=== PATIENT | male | born 1980 | race Caucasian/White ===

== ENCOUNTER 2018-01-07 21:50 | Emergency (ER) | payer MEDICAID ==
[~2018-01-07] VITALS: Ht 172.7 cm; Wt 89.8 kg
[2018-01-07 22:00] VITALS: BP 121/89
--- NOTE | 2018-01-07 22:00 | NUR ---
PT TAKEN TO BED 12
--- NOTE | 2018-01-07 22:05 | NUR ---
PATIENT IS A 37 Y/O MALE WHO PRESENTS TO THE ED C/O VOMITING. PT STATES THAT IT STARTED TODAY. PT REPORTS 8/10 ACHING LOWER ABD PAIN THAT DOES NOT RADIATE. PT DENIES CP, SOB, REPORTS NAUSEA/VOMITING DENIES DIARRHEA. PT AWAKE AND ALERT, RR EVEN/UNLABORED. PT REPOSITIONED FOR COMFORT, BED IN LOWEST POSITION. ER MD DR. GAYLE NOTIFIED. WILL CONTINUE TO MONITOR.
[2018-01-07] MEDS ORDERED: NACL 0.9% 1,000 ML IV ONE (23:12)
[2018-01-07] MEDS ORDERED: ONDANSETRON 4 MG/2 ML VIAL IVP ONE (23:15)
[2018-01-07] MEDS ORDERED: KETOROLAC 30 MG/ML VIAL IVP ONE (23:15)
[2018-01-07 23:43] LABS: BASOPHILS % (AUTO) 0.3 % (0.0-2.0); EOSINOPHILS # (AUTO) 0.3 K/uL (0-0.4); EOSINOPHILS % (AUTO) 3.1 % (0.0-4.0); HEMATOCRIT 45.7 % (36-52); HEMOGLOBIN 15.4 g/dL (12.0-18.0); LYMPHOCYTES # (AUTO) 0.8 K/uL (2.0-11.5); LYMPHOCYTES % (AUTO) 9.1 % (20.5-51.1); MEAN CORPUSCULAR HEMOGLOBIN 31 pg (27-31); MEAN CORPUSCULAR HGB CONC 34 g/dL (33-37); MEAN CORPUSCULAR VOLUME 90.5 fL (80-94); MONOCYTES # (AUTO) 0.4 K/uL (0.8-1.0); NEUTROPHILS # (AUTO) 7.4 K/uL (1.8-7.7); NEUTROPHILS % (AUTO) 83.5 % (42.2-75.2); PLATELET COUNT (AUTO) 199 K/uL (140-450); RED BLOOD CELL COUNT(AUTO) 5.05 MIL/uL (4.20-6.10); RED CELL DISTRIBUTION WIDTH 13.3 % (11.6-13.7); WHITE BLOOD COUNT (AUTO) 8.9 K/uL (4.8-10.8)
--- NOTE | 2018-01-07 23:46 | NUR ---
PT TAKEN TO CT
[2018-01-07 23:57] LABS: ANION GAP 12.5 (8-16); CREATININE 0.9 mg/dL (0.7-1.3); POTASSIUM 3.5 mmol/L (3.5-5.1)
--- NOTE | 2018-01-07 23:59 | NUR ---
PT RETURN FROM CT
--- NOTE | 2018-01-08 | NUR ---
PATIENT RESTING AT THIS TIME. NO SIGNS OF DISTRESS.
[2018-01-08 00:03] LABS: ALBUMIN 4.1 g/dL (3.4-5.0); TOTAL BILIRUBIN 0.4 mg/dL (0.0-1.0)
[2018-01-08 01:00] VITALS: BP 119/72
--- NOTE | 2018-01-08 01:00 | NUR ---
Patient discharged with v/s stable. Written and verbal after care instructions given and explained. Patient alert, oriented and verbalized understanding of instructions. Ambulatory with steady gait. All questions addressed prior to discharge. ID band removed. Patient advised to follow up with PMD. Rx of ZOFRAN 4MG AND MOTRIN 800MG given. Patient educated on indication of medication including possible reaction and side effects. Opportunity to ask questions provided and answered.
== END 2018-01-08 01:00 | disposition home or self-care (01) ==
LOC: MED 21:50
DX: N23 Unspecified renal colic (principal); R63.0 Anorexia; Z88.0 Allergy status to penicillin
CPT/HCPCS: 36415; 74176; 80053; 83690; 85025; 96361; 96374; 96375; 99285; J1885; J2405; J7030

== ENCOUNTER 2018-06-06 14:27 | Emergency (ER) | payer MEDICAID ==
[~2018-06-06] VITALS: Ht 167.6 cm; Wt 93.9 kg
[2018-06-06 14:41] VITALS: BP 124/81
--- NOTE | 2018-06-06 14:47 | NUR ---
A 37 YO M BIB FAMILY W/ C/O NECK AND UPPER BACK/HEAD PAIN S/P FALL YESTERDAY FROM [facility] PER PT " ABOUT 5-6 FEET" . PT DENIES LOC. DENIESS N/V. 10/10 PAIN. AAOX4, GCS 15. CMS INTACT. PERRLA INTACT, PUPILS EQUAL 3MM. BL ARM APPOINTMENT CLERK SYMMETRICAL/STRONG. 10/10 SHARP PAIN IN NECK THAT RADIATES TO BACK. DENIES ANY DIZZYNESS. RR EVEN AND UNLABORED. ABLE TO SPEAK IN FULL AND COMPLETE SENTENCES. WILL CONTINUE TO MONITOR. SAFETY PRECAUTIONS IMPLEMETED. ER MADE AWARE.
[2018-06-06] MEDS ORDERED: IBUPROFEN 800 MG TAB PO ONE (15:55)
[2018-06-06] MEDS ORDERED: traMADol 50 MG TAB PO ONE (15:55)
--- NOTE | 2018-06-06 16:30 | NUR ---
PT. RESTING IN BED, HOB ELEVATED. RR EVEN AND UNLABORED. VSS. SAFETY PRECAUTIONS IN PLACE. WILL CONTINUE TO MONITOR.
[2018-06-06 18:07] VITALS: BP 124/82
--- NOTE | 2018-06-06 18:07 | NUR ---
Patient discharged with v/s stable. Written and verbal after care instructions given and explained. Patient alert, oriented and verbalized understanding of instructions. Ambulatory with steady gait. All questions addressed prior to discharge. ID band removed. Patient advised to follow up with PMD. Rx of IBUPROFEN 800MG. given. Patient educated on indication of medication including possible reaction and side effects. Opportunity to ask questions provided and answered.
== END 2018-06-06 18:07 | disposition home or self-care (01) ==
LOC: MED 14:27
DX: S20.20XA Contusion of thorax, unspecified, initial encounter (principal); Z88.0 Allergy status to penicillin; W17.89XA Other fall from one level to another, initial encounter; Y93.89 Activity, other specified; Y92.89 Other specified places as the place of occurrence of the external cause; Y99.8 Other external cause status
CPT/HCPCS: 71250; 72125; 99284

== ENCOUNTER 2019-06-23 22:14 | Emergency (ER) | payer MEDICAID ==
[~2019-06-23] VITALS: Ht 167.6 cm; Wt 86.2 kg
--- NOTE | 2019-06-23 22:14 | NUR ---
PT BIB [facility], PREBOOK. TAKEN TO CHAIR D
[2019-06-23 22:15] VITALS: BP 125/95
--- NOTE | 2019-06-23 22:15 | NUR ---
PT TAKEN TO CHAIR D
--- NOTE | 2019-06-23 22:18 | NUR ---
PT ASSESSMENT COMPLETE. PT SEATED UP RIGHT IN CHAIR WITH [facility]. WILL CONTINUE TO MONITOR.
[2019-06-23 22:20] VITALS: BP 125/95
--- NOTE | 2019-06-23 22:48 | NUR ---
PATIENT EXAMINED BY DR. GUADALUPE. PATIENT MEDICALLY CLEARED AND RELEASED IN CUSTODY IN STABLE CONDITION. ORIGINAL PRE-BOOK FORM GIVEN TO OFFICER YUNIOR, #[id number]
== END 2019-06-23 22:48 ==
LOC: MED 22:14
DX: Z04.1 Encounter for examination and observation following transport accident (principal); Z98.890 Other specified postprocedural states; Z88.0 Allergy status to penicillin; V89.2XXA Person injured in unspecified motor-vehicle accident, traffic, initial encounter; Y93.89 Activity, other specified; Y92.89 Other specified places as the place of occurrence of the external cause; Y99.8 Other external cause status
CPT/HCPCS: 99283

== ENCOUNTER 2022-01-23 19:54 | Emergency (ER) | payer MEDICAID ==
[~2022-01-23] VITALS: Ht 165.1 cm; Wt 105.2 kg
[2022-01-23 19:57] VITALS: BP 128/84
[2022-01-23] MEDS ORDERED: NACL 0.9% 1,000 ML IV ONE (21:35)
[2022-01-23] MEDS ORDERED: DICYCLOMINE HCL LIQUID 20 MG, ALUMINUM HYD/MAG/SIMETHICONE 30 ML, LIDOCAINE VISCOUS 2% ... PO ONE ×3 (21:35)
[2022-01-23] MEDS ORDERED: DICYCLOMINE HCL LIQUID 10 MG/5 ML UDC ONE (21:38)
[2022-01-23] MEDS ORDERED: ALUMINUM HYD/MAG/SIMETHICONE 30 ML UDC ONE (21:38)
[2022-01-23 22:05] LABS: BASOPHILS % (AUTO) 0.7 % (0.0-2.0); EOSINOPHILS # (AUTO) 0.8 K/uL (0-0.4); EOSINOPHILS % (AUTO) 10.7 % (0.0-4.0); HEMATOCRIT 46.2 % (36-52); LYMPHOCYTES # (AUTO) 1.9 K/uL (2.0-11.5); LYMPHOCYTES % (AUTO) 26.8 % (20.5-51.1); MEAN CORPUSCULAR HEMOGLOBIN 32 pg (27-31); MEAN CORPUSCULAR HGB CONC 35 g/dL (33-37); MEAN CORPUSCULAR VOLUME 92.9 fL (80-94); MONOCYTES # (AUTO) 0.6 K/uL (0.8-1.0); MONOCYTES % (AUTO) 8.1 % (1.7-9.3); NEUTROPHILS # (AUTO) 3.8 K/uL (1.8-7.7); NEUTROPHILS % (AUTO) 53.7 % (42.2-75.2); PLATELET COUNT (AUTO) 214 K/uL (140-450); RED BLOOD CELL COUNT(AUTO) 4.98 MIL/uL (4.20-6.10); RED CELL DISTRIBUTION WIDTH 12.9 % (11.6-13.7); WHITE BLOOD COUNT (AUTO) 7.1 K/uL (4.8-10.8)
[2022-01-23 22:25] LABS: ANION GAP 13.6 (8-16); CARBON DIOXIDE 27.3 mmol/L (21-32); CREATININE 1.1 mg/dL (0.6-1.3); POTASSIUM 3.9 mmol/L (3.5-5.1); TOTAL BILIRUBIN 0.7 mg/dL (0.0-1.0)
[2022-01-24] MEDS ORDERED: ACET-10509 PO (00:26)
[2022-01-24] MEDS ORDERED: ONDA-188 SL (00:26)
[2022-01-24 00:42] VITALS: BP 124/79
== END 2022-01-24 00:42 | disposition home or self-care (01) ==
LOC: MED 19:54
DX: R19.7 Diarrhea, unspecified (principal); R10.9 Unspecified abdominal pain; R11.0 Nausea; R63.0 Anorexia; Z88.0 Allergy status to penicillin; Z79.899 Other long term (current) drug therapy; Z98.890 Other specified postprocedural states
CPT/HCPCS: 36415; 80053; 81002; 83690; 85025; 96360; 99283; J7030

== ENCOUNTER 2022-07-20 18:30 | Emergency (ER) | payer MEDICAID ==
[~2022-07-20] VITALS: Ht 167.6 cm; Wt 107.0 kg
[~2022-07-20 18:30] MED LIST: ACET-10509 PO; ONDA-188 SL
[2022-07-20 18:41] VITALS: BP 138/86
--- NOTE | 2022-07-20 20:17 | NUR ---
Dr. Tierney examining patient.
[2022-07-20] MEDS ORDERED: IBUP-2213 PO (21:07)
[2022-07-20 21:14] VITALS: BP 132/86
== END 2022-07-20 21:14 | disposition home or self-care (01) ==
LOC: MED 18:30
DX: S60.221A Contusion of right hand, initial encounter (principal); Z88.0 Allergy status to penicillin; Z79.899 Other long term (current) drug therapy; W22.8XXA Striking against or struck by other objects, initial encounter; Y93.89 Activity, other specified; Y92.89 Other specified places as the place of occurrence of the external cause; Y99.8 Other external cause status
CPT/HCPCS: 73130; 99283

== ENCOUNTER 2023-04-27 14:19 | Emergency (ER) | payer MEDICAID ==
[~2023-04-27] VITALS: Ht 162.6 cm; Wt 77.1 kg
[~2023-04-27 14:19] MED LIST changes: +IBUP-2213 PO
[2023-04-27 15:32] VITALS: BP 128/86; PULSE 76; RESP 18; TEMP 98; O2SAT 98
[2023-04-27 18:14] LABS: BASOPHILS # (AUTO) 0.1 K/uL (0.00-0.22); BASOPHILS % (AUTO) 0.7 % (0.0-2.0); EOSINOPHILS # (AUTO) 0.8 K/uL (0-0.4); EOSINOPHILS % (AUTO) 8.8 % (0.0-4.0); HEMATOCRIT 45.4 % (36-52); HEMOGLOBIN 15.7 g/dL (12.0-18.0); LYMPHOCYTES # (AUTO) 2.1 K/uL (2.0-11.5); LYMPHOCYTES % (AUTO) 23.9 % (20.5-51.1); MEAN CORPUSCULAR HEMOGLOBIN 32 pg (27-31); MEAN CORPUSCULAR HGB CONC 35 g/dL (33-37); MEAN CORPUSCULAR VOLUME 91.5 fL (80-94); MONOCYTES # (AUTO) 0.7 K/uL (0.8-1.0); MONOCYTES % (AUTO) 7.4 % (1.7-9.3); NEUTROPHILS # (AUTO) 5.3 K/uL (1.8-7.7); NEUTROPHILS % (AUTO) 59.2 % (42.2-75.2); PLATELET COUNT (AUTO) 265 K/uL (140-450); RED BLOOD CELL COUNT(AUTO) 4.96 MIL/uL (4.20-6.10); RED CELL DISTRIBUTION WIDTH 12.3 % (11.6-13.7)
[2023-04-27 18:17] LABS: APPEARANCE,URINE CLEAR (CLEAR); BILIRUBIN,URINE NEGATIVE (NEGATIVE); BLOOD, URINE TRACE-I (NEGATIVE); COLOR,URINE YELLOW (YELLOW); LEUKOCYTE ESTERASE ,URINE NEGATIVE (NEGATIVE); NITRITE, URINE NEGATIVE (NEGATIVE); PROTEIN,URINE NEGATIVE (NEGATIVE); UGLUCOSE NEGATIVE (NEGATIVE); UROBILINOGEN,URINE 0.2 EU/dL (0.2 - 1)
[2023-04-27 18:27] LABS: BACTERIA,URINE FEW /HPF (None Seen); RBC,URINE 0-5 /HPF (0-5); SQUAMOUS EPITHELIAL CELL,UR 0-3 (FEW) /LPF (0-3 (FEW)); WBC,URINE 0-5 /HPF (0-5)
[2023-04-27 18:33] LABS: ANION GAP 11.1 (8-16); CALCIUM 8.7 mg/dL (8.5-10.1); CARBON DIOXIDE 29.4 mmol/L (21-32); CREATININE 1.1 mg/dL (0.6-1.3); POTASSIUM 3.5 mmol/L (3.5-5.1); TOTAL BILIRUBIN 0.6 mg/dL (0.0-1.0); TOTAL PROTEIN, SERUM 8.4 g/dL (6.4-8.2)
== END 2023-04-27 19:40 | disposition home or self-care (01) ==
LOC: MED 14:19
DX: R25.2 Cramp and spasm (principal); R03.0 Elevated blood-pressure reading, without diagnosis of hypertension; Z79.899 Other long term (current) drug therapy; Z79.1 Long term (current) use of non-steroidal anti-inflammatories (NSAID); Z88.0 Allergy status to penicillin
CPT/HCPCS: 36415; 80053; 81001; 85025; 99283

== ENCOUNTER 2023-07-20 11:51 | Emergency (ER) | payer MEDICAID ==
[~2023-07-20] VITALS: Ht 167.6 cm; Wt 102.5 kg
[2023-07-20 11:56] VITALS: BP 138/90; PULSE 87; RESP 16; TEMP 97.7; O2SAT 97
[2023-07-20] MEDS: METOCLOPRAMIDE 10 MG/2 ML INJ VIAL IVP ONE (12:55)
[2023-07-20] MEDS: KETOROLAC 30 MG/ML VIAL IVP ONE (12:55)
[2023-07-20] MEDS: diphenhydrAMINE 50 MG/ML VIAL IVP ONE (12:55)
[2023-07-20] MEDS: NACL 0.9% 1,000 ML IV ONE (13:16)
[2023-07-20 13:17] LABS: BASOPHILS # (AUTO) 0.1 K/uL (0.00-0.22); BASOPHILS % (AUTO) 0.5 % (0.0-2.0); EOSINOPHILS # (AUTO) 0.8 K/uL (0-0.4); EOSINOPHILS % (AUTO) 7.8 % (0.0-4.0); HEMATOCRIT 46.5 % (36-52); HEMOGLOBIN 16.5 g/dL (12.0-18.0); LYMPHOCYTES # (AUTO) 1.8 K/uL (2.0-11.5); LYMPHOCYTES % (AUTO) 16.4 % (20.5-51.1); MEAN CORPUSCULAR HEMOGLOBIN 32 pg (27-31); MEAN CORPUSCULAR HGB CONC 36 g/dL (33-37); MEAN CORPUSCULAR VOLUME 90.2 fL (80-94); MONOCYTES # (AUTO) 0.5 K/uL (0.8-1.0); MONOCYTES % (AUTO) 5.1 % (1.7-9.3); NEUTROPHILS # (AUTO) 7.6 K/uL (1.8-7.7); NEUTROPHILS % (AUTO) 70.2 % (42.2-75.2); PLATELET COUNT (AUTO) 253 K/uL (140-450); RED BLOOD CELL COUNT(AUTO) 5.15 MIL/uL (4.20-6.10); WHITE BLOOD COUNT (AUTO) 10.8 K/uL (4.8-10.8)
[2023-07-20 13:35] LABS: ANION GAP 9.5 (8-16); CALCIUM 8.7 mg/dL (8.5-10.1); CARBON DIOXIDE 29.6 mmol/L (21-32); CREATININE 0.9 mg/dL (0.6-1.3); POTASSIUM 4.1 mmol/L (3.5-5.1)
[2023-07-20 13:58] LABS: FLU A ANTIGEN negative (NEGATIVE); FLU B ANTIGEN negative (NEGATIVE)
[2023-07-20] MEDS: ONDANSETRON 4 MG/2 ML VIAL IVP ONE (14:13)
[2023-07-20 15:09] LABS: ALANINE AMINOTRANSFERASE 39 U/L (12-78); ALBUMIN 3.8 g/dL (3.4-5.0); ALKALINE PHOSPHATASE 52 U/L (50-136); ASPARTATE AMINOTRANSFERASE 22 U/L (15-37); BILIRUBIN,DIRECT 0.1 mg/dL (0.0-0.3); TOTAL BILIRUBIN 0.4 mg/dL (0.0-1.0)
[2023-07-20] MEDS ORDERED: BENZ200C4 PO (15:22)
== END 2023-07-20 15:35 | disposition home or self-care (01) ==
LOC: MED 11:51
DX: R51.9 Headache, unspecified (principal); Z20.822 Contact with and (suspected) exposure to COVID-19; R07.9 Chest pain, unspecified; R05.9 Cough, unspecified; R09.81 Nasal congestion; R09.89 Other specified symptoms and signs involving the circulatory and respiratory systems; Z79.899 Other long term (current) drug therapy; Z88.0 Allergy status to penicillin
CPT/HCPCS: 36415; 71045; 80048; 80076; 84484; 85025; 87426; 87804; 93005; 96361; 96374; 96375; 99285; J1200; J1885; J2405; J2765; J7030